=== PATIENT | female | born 1965 | race Caucasian/White ===

== ENCOUNTER 2020-10-18 15:29 | Emergency (ER) | payer BC ==
[2020-10-18 16:02] VITALS: BP 122/74; PULSE 77; TEMP 98.8; BMI 42.3
[2020-10-18] MEDS ORDERED: IBUPROFEN 600 MG TABLET (FP) PO ONE ×2 (17:36→17:37)
== END 2020-10-18 18:20 | disposition home or self-care (01) ==
LOC: FER 15:29
PROC: 2W3QX1Z Immobilization of Right Lower Leg using Splint (ICD-10-PCS; principal; 2020-10-18)
DX: S82.401A Unspecified fracture of shaft of right fibula, initial encounter for closed fracture (principal)
CPT/HCPCS: 73590-TC-RT-FY; 73610-TC-RT-FY; 73630-TC-RT-FY; 99284-25